=== PATIENT | male | born 1945 | race Caucasian/White ===

== ENCOUNTER 2018-09-14 14:10 | Inpatient (IN) | payer MEDICARE ==
[~2018-09-14] VITALS: Ht 170.2 cm; Wt 62.1 kg
--- NOTE | 2018-09-14 14:20 | NUR ---
Pt was medically cleared at sending facility and arrives on 5150 hold. Per pt may be trans to [facility]HU.
--- NOTE | 2018-09-14 14:25 | NUR ---
SBAR report was given to Grace CANDELARIA.
[2018-09-14] MEDS ORDERED: LISINOPRIL (14:29)
[2018-09-14] MEDS ORDERED: KEFLEX (14:29)
--- NOTE | 2018-09-14 15:20 | NUR ---
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
--- NOTE | 2018-09-14 15:20 | NUR ---
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 Patient alert, oriented, pleasant, slightly anxious, oriented to unit settings. Patient noted dressings to bilateral wrist area, dressings removed, site was cleansed , noted scanty sblood stain from old dressings, site cleansed with NS, kept dry, sutures are intact, adapting and kerlix dressings. Patient claimed he does note have support system , he's been divorce for many years, lives in a motel. Denies wanting to hurt self again , claimed he was overwhelmed with his situation , did by impulse. Has cousin Salvador that lives in [place], [place]. claimed he talked to his about his admission to [facility] ([facility])
--- NOTE | 2018-09-14 15:27 | NUR ---
Pt. admitted to [facility] , under care of Dr. Oseguera/Shilo Stephenson Belongs List completed
[2018-09-14 16:00] VITALS: BP 150/59
[2018-09-14] MEDS ORDERED: CLONIDINE HCL 0.1 MG TABLET PO PRN (17:00)
[2018-09-14] MEDS ORDERED: LORAZEPAM 0.5 MG TABLET PO PRN (18:15)
[2018-09-14] MEDS: CEphaleXIN 500 MG CAPSULE PO SCH (18:15)
[2018-09-14] MEDS ORDERED: MAGNESIUM HYDROXIDE 30 ML LIQUID UDC PO PRN (18:15)
[2018-09-14] MEDS ORDERED: MAG HYDROX/AL HYDROX/SIMETH 30 ML LIQUID UDC PO PRN (18:15)
[2018-09-14] MEDS ORDERED: ACETAMINOPHEN 325 MG TABLET PO PRN (18:15)
[2018-09-14] MEDS: LISINOPRIL 10 MG TABLET PO SCH (20:03)
[2018-09-14 21:02] VITALS: BP 139/76
--- NOTE | 2018-09-14 22:00 | NUR ---
received to care isolative, but pleasant upon approach. denies SI at this time, but admits to being very depressed and despondent. agreed to contract for safety. says he is hopeful that social media marketing specialist can assist him with placement. emotional support provided. currently eating a snack.
[2018-09-14] MEDS: TEMAZEPAM 7.5 MG CAPSULE PO PRN (23:00)
--- NOTE | 2018-09-14 23:30 | NUR ---
PRN restoril given at 2300 for insomnia. as of 2329, he appears asleep. no distress noted. monitored closely by staff.
--- NOTE | 2018-09-15 06:00 | NUR ---
slept 7.5 hours
[2018-09-15 06:31] LABS: BASOPHILS # (AUTO) 0.1 K/uL (0.0-8.0); BASOPHILS % (AUTO) 0.9 % (0.0-2.0); EOSINOPHILS # (AUTO) 0.2 K/uL (0.0-0.7); EOSINOPHILS % (AUTO) 2.2 % (0.0-7.0); HEMATOCRIT 32.4 % (36.7-47.1); HEMOGLOBIN 10.7 g/dL (12.5-16.3); LYMPHOCYTES # (AUTO) 2.2 K/uL (20.0-40.0); MEAN CORPUSCULAR HEMOGLOBIN 30.4 uug (23.8-33.4); MEAN CORPUSCULAR HGB CONC 33 g/dL (32.5-36.3); MONOCYTES # (AUTO) 0.9 K/uL (2.0-10.0); NEUTROPHILS # (AUTO) 6.3 K/uL (1.8-8.9); NEUTROPHILS % (AUTO) 64.9 % (38.5-71.5); PLATELET COUNT (AUTO) 305 K/uL (152-348); RED BLOOD CELL COUNT(AUTO) 3.52 MIL/uL (4.06-5.63); WHITE BLOOD COUNT (AUTO) 9.7 K/uL (3.6-10.2)
[2018-09-15 06:59] LABS: ALANINE AMINOTRANSFERASE 21 U/L (16-63); ALKALINE PHOSPHATASE 69 U/L (50-136); ASPARTATE AMINOTRANSFERASE 13 U/L (15-37); BILIRUBIN,TOTAL 0.2 mg/dL (0.2-1.0); CARBON DIOXIDE 29 mmol/L (21-32); CHLORIDE 108 mmol/L (98-107); CHOLESTEROL 149 mg/dL (<200); CREATININE 1.1 mg/dL (0.6-1.3); GLUCOSE 101 mg/dL (74-106); HDL CHOLESTEROL 76 mg/dL (40-60); PHOSPHOROUS 3.8 mg/dL (2.5-4.9); POTASSIUM 4.5 mmol/L (3.5-5.1); TOTAL PROTEIN, SERUM 6.2 g/dL (6.4-8.2); TRIGLYCERIDES 125 MG/DL (30-150); UREA NITROGEN, BLOOD 21 mg/dL (7-18)
[2018-09-15 07:02] LABS: THYROID STIMULATING HORMONE 1.653 mIU/mL (0.358-3.740)
[2018-09-15 07:30] VITALS: BP 150/68
[2018-09-15] MEDS: LISINOPRIL 10 MG TABLET PO SCH ×2 (08:13→20:03)
[2018-09-15] MEDS: CEphaleXIN 500 MG CAPSULE PO SCH ×2 (08:14→16:33)
[2018-09-15 16:00] VITALS: BP 149/72
[2018-09-15] MEDS: SERTRALINE HCL 50 MG TABLET PO SCH (16:36)
[2018-09-15] MEDS: TEMAZEPAM 7.5 MG CAPSULE PO PRN (21:01)
[2018-09-15 21:07] VITALS: BP 162/54
[2018-09-16 08:01] VITALS: BP 147/67
[2018-09-16] MEDS: CEphaleXIN 500 MG CAPSULE PO SCH ×2 (08:11→17:10)
[2018-09-16] MEDS: LISINOPRIL 10 MG TABLET PO SCH ×2 (08:13→20:27)
--- NOTE | 2018-09-16 12:07 | NUR ---
- Recommend adding MVI to aid in healing of wrist lacerations. Discussed with nurse, she agrees. Addendum: 09/16/18 at [address] Amended: Links added.
[2018-09-16 16:46] VITALS: BP 161/61
[2018-09-16] MEDS: SERTRALINE HCL 50 MG TABLET PO SCH (17:10)
[2018-09-16 20:00] VITALS: BP 132/75
--- NOTE | 2018-09-16 22:01 | NUR ---
RECEIVED PATIENT IN THE ACTIVITY ROOM WITH PEERS. HE APPEARS SAD BUT DENIES SI AT THIS TIME. COMPLIANT WITH MEDS.DENIES PAIN OR DISCOMFORT AT THIS TIME. WILL CONTINUE TO MONITOR CLOSELY.
--- NOTE | 2018-09-17 06:27 | NUR ---
SLEPT FAIRLY WELL FOR APPROX.7;30. NO C/O PAIN OR DISCOMFORT ALL THROUGH THE NIGHT.
[2018-09-17] MEDS: LISINOPRIL 10 MG TABLET PO SCH ×2 (08:19→20:03)
[2018-09-17] MEDS: CEphaleXIN 500 MG CAPSULE PO SCH ×2 (08:19→16:09)
[2018-09-17 08:30] VITALS: BP 155/65
--- NOTE | 2018-09-17 13:01 | NUR ---
Initial Discharge Note: Patient is a 73 year old male who is currently homeless. Per patient, he would like assistance in finding a place to live. Patient may be a candidate for longterm placement. flume worker to further assess. flume worker has reached out to patient cousin, Salvador Gee [[phone]], and left a voicemail requesting call back. flume worker will continue to collaborate with patient and MD on a safe and proper discharge.
--- NOTE | 2018-09-17 14:01 | NUR ---
WOUND CARE CONSULT: PT PRESENTS WITH BILATERAL WRIST LACERATIONS WHICH WERE SUTURED AND PRESENT ON ADMISSION. RECOMMEND SURGICAL CONSULT. PT IS AMBULATORY AND CONTINENT. BORDERGAUZE IN USE FOR PROTECTION OF WRISTS. WILL SEE PRN. DR ROCÍO JOHNSON NOTIFIED OF SURGICAL CONSULT REQUEST. Addendum: 09/17/18 at 1402 by REGINA CAMERON RN Amended: Links added. Addendum: 09/17/18 at 1407 by REGINA CAMERON RN SMALL AMOUNT OF PINK DRAINAGE NOTED FROM RT WRIST LACERATION, NO ODOR. NO DRAINAGE FROM LEFT WRIST LACERATION.
[2018-09-17 15:45] VITALS: BP 149/60
[2018-09-17] MEDS: SERTRALINE HCL 50 MG TABLET PO SCH (16:09)
--- NOTE | 2018-09-17 17:28 | NUR ---
patient is sitting in dinning room, alert, oriented x4, verbally responsive, no sob, resp even nonlabored, patient denied suicidal thoughts, participated in the activities, no acute distress noted, continue to monitor closely for safety, patient is compliant with meds and treatment plan. dressing changed to both wrists wounds. no signs and symptoms of infection.
[2018-09-17 20:15] VITALS: BP 176/72
[2018-09-17] MEDS: TEMAZEPAM 7.5 MG CAPSULE PO PRN (20:44)
--- NOTE | 2018-09-18 06:33 | NUR ---
End of shift report: Patient slept through out the night. Patient denies any SI/HI at this time. Patient is alert and oriented x3. Patient is compliant with all medication administration and medical treatment. Patient able to verbalize needs. Patient is cooperative and pleasant upon approach. Will continue to monitor and endorse POC to oncoming nurse.
[2018-09-18 07:30] VITALS: BP 145/68
[2018-09-18] MEDS: LISINOPRIL 10 MG TABLET PO SCH ×2 (08:11→20:13)
[2018-09-18] MEDS: CEphaleXIN 500 MG CAPSULE PO SCH ×2 (08:11→16:42)
--- NOTE | 2018-09-18 08:59 | NUR ---
FIREARMS REPORT: family services worker completed and submitted a [employer] firearms report for a 5150 DTS certification. A copy of report has been placed in patient chart.
[2018-09-18 15:01] VITALS: BP 166/58
[2018-09-18] MEDS: SERTRALINE HCL 50 MG TABLET PO SCH (16:42)
[2018-09-18 20:00] VITALS: BP 142/55
[2018-09-18] MEDS: TEMAZEPAM 7.5 MG CAPSULE PO PRN (21:06)
[2018-09-19 07:20] VITALS: BP 138/59
[2018-09-19] MEDS: CEphaleXIN 500 MG CAPSULE PO SCH ×2 (08:11→16:45)
[2018-09-19] MEDS: LISINOPRIL 10 MG TABLET PO SCH ×2 (08:11→21:06)
--- NOTE | 2018-09-19 13:08 | NUR ---
Discharge planning: meat counter worker faxed patient referral packet to [facility] [ [address] [place] [address]; ; ] for admission review. meat counter worker awaiting call back.
[2018-09-19 16:21] VITALS: BP 159/65
[2018-09-19] MEDS: SERTRALINE HCL 50 MG TABLET PO SCH (16:45)
--- NOTE | 2018-09-19 17:42 | NUR ---
GPS: RECEIVED PATIENT AWAKE ON BED, READING SOME MAGAZINE, PATIENT CALM AND COOPERATIVE COMPLIANT WITH MEDICATION DENIES SI AND HI, ASK IF HE WANTS TO HURT HIMSELF PATIENT REPLIED THATS THE THING OF THE PAST, PATIENT SEEN AND EXAMINED BY GAS APPLIANCE REPAIRER SECONDARY TO WOUND ON HIS WRIST, WOUND CARE DONE, WILL CONTINUE MONITOR
[2018-09-19 20:00] VITALS: BP 166/55
[2018-09-19] MEDS: TEMAZEPAM 7.5 MG CAPSULE PO PRN (21:07)
--- NOTE | 2018-09-20 05:44 | NUR ---
GPS/NSG Patient first observed awake in day room interacting with peers. Patient observed to have a flat affect with low mood. Alert oriented X4. Compliant with HS medication. Requested prn for insomnis with effective outcome. Continue to monitor for safety. Addendum: 09/20/18 at 0556 by RENAY BANERJEE RN According to staff member patient expressed to peer fear of wanting to hurt somebody on discharge. Report to next shift will be endorsed as well as a message to social insurance administrator for follow up. Continue to monitor mood for suicidal or homicidal ideation.
[2018-09-20 07:30] VITALS: BP 143/62
[2018-09-20] MEDS: CEphaleXIN 500 MG CAPSULE PO SCH ×2 (09:12→17:13)
[2018-09-20] MEDS: LISINOPRIL 10 MG TABLET PO SCH ×2 (09:12→20:46)
[2018-09-20 16:13] VITALS: BP 145/69
[2018-09-20] MEDS: SERTRALINE HCL 50 MG TABLET PO SCH (17:13)
[2018-09-20 20:13] VITALS: BP 123/66
[2018-09-20] MEDS: TEMAZEPAM 7.5 MG CAPSULE PO PRN (20:52)
--- NOTE | 2018-09-21 06:43 | NUR ---
GPS. PATIENT REMAINED COOPERATIVE WITH CARE AND MEDICATIONS, PATIENT SLEPT 6.5 HOURS AFTER RECEIVING A PRN RESTORIL 7.5MG PO.
[2018-09-21 07:30] VITALS: BP 162/70
--- NOTE | 2018-09-21 08:11 | NUR ---
DC NOTE: Patient will be discharged to [facility] [[place] [address]; ] and transportation will be provided by facility at 11:00am. Acceptance to facility was received by Bella, affiliate marketing coordinator, who states they are ready to accept the patient today. Patient is AxOx4, denies suicidal ideation, is able to plan for self-care, and is agreeable with discharge plan. computer networker has called and spoken with patient cousin, Salvador Gee [[phone]], who is aware and agreeable with discharge plan. Patient will follow-up with Dr. Chagn [psychiatrist] and Dr. Handy [odd jobs day worker] at the facility. Patient has also been provided with mental health resources including [facility] [[address], [place] [address]; ], [facility] [ ], and National Suicide Prevention Lifeline [ ].
[2018-09-21 08:21] VITALS: BP 162/70
[2018-09-21] MEDS: LISINOPRIL 10 MG TABLET PO SCH (08:21)
[2018-09-21] MEDS: CEphaleXIN 500 MG CAPSULE PO SCH (08:21)
--- NOTE | 2018-09-21 11:07 | NUR ---
pt left unit on w/c accompanied by chino Bradley and MO Morris. Pt left with all noted belongings and paperwork. Able to make all needs known. Denies suicidal and homicidal ideations. In no acute distress.
== END 2018-09-21 14:00 | DRG 885 ==
LOC: ER 14:10 → GPS 15:28
PROVIDERS: ADMIT Psychiatry & Neurology Psychosomatic Medicine; ATTEND Nurse Practitioner Acute Care
DX: F33.9 Major depressive disorder, recurrent, unspecified (principal); E44.1 Mild protein-calorie malnutrition; N39.0 Urinary tract infection, site not specified; E86.0 Dehydration; D63.8 Anemia in other chronic diseases classified elsewhere; S61.512D Laceration without foreign body of left wrist, subsequent encounter; S61.511D Laceration without foreign body of right wrist, subsequent encounter; X78.8XXD Intentional self-harm by other sharp object, subsequent encounter; Z59.0 Homelessness; I69.90 Unspecified sequelae of unspecified cerebrovascular disease; R53.1 Weakness; I10 Essential (primary) hypertension
CPT/HCPCS: 36415; 83735; 84100; 84443; 85025; 97116; 97530; A4663